=== PATIENT | male | born 1945 | race Caucasian/White ===

== ENCOUNTER → 2017-09-23 | Outpatient (CLI) | payer OTHER | LOC: CIMAGING 08:34 | PROVIDERS: ATTEND Family Medicine | DX: R53.83 Other fatigue (principal); R06.02 Shortness of breath; R68.82 Decreased libido; K59.00 Constipation, unspecified; J44.9 Chronic obstructive pulmonary disease, unspecified | CPT/HCPCS: 71020-PO ==

== ENCOUNTER 2017-10-22 08:24 | Emergency (ER) | payer OTHER ==
[2017-10-22 08:39] VITALS: BP 128/74; PULSE 97; RESP 18; TEMP 97.7; O2SAT 95
--- NOTE | 2017-10-22 09:03 | EDPHY ---
H & P HPI/ROS: CC: Rash x 4 days HPI: This 72 y/o male presents to the ED with c/o a painful, pruritic rash over his left flank that started almost four days ago. It has had "blisters" over the red base. He has never had a shingles vaccine that he knows of. He has had a productive cough for a week or so as well. ROS: Denies fever, chills, headache, vision change or eye lesions, sore throat, chest pain, abdominal pain. He has difficulty urinating on occasion and has to get up multiple times during the night. He wheezes a lot and has a 30 pack/ year history of smoking. He states he is down to 5/day. The remainder of the 10 pt review of systems is normal. Past Medical/Surgical History: PMH: HTN, A-fib/flutter, emphysema, BPH PSH: Lung surgery, ablations FH: noncontributory NKDA Meds: Metoprolol, Pradaxa, [id number] super beta for his prostate Social History: 30 pk/yr history tobacco now down to 5 cig per day; No ETOH, Occasional marijuana Smoking Status: Light smoker Physical Exam: GEN: Alert and Oriented x 3 in moderate discomfort HEENT: NC/AT, PERRLA, EOMI, no injection, discharge or conjunctivitis, no apparent eye lesions, Oropharynx clear NECK: supple, no JVD, no meningeal signs Heart: borderline tachycardia, no murmur, gallops or rubs Lungs: scattered wheeze bilaterally, no rhonchi Abdomen: soft, NT/ND, no R/G/R Extremities: no C/C/E Skin: erythematous rash with vesicles over the left flank ~dermatome T10-11 Neuro: nonfocal exam Constitutional: Initial Vital Signs Temperature (C) 97.7 F 10/22/17 08:35 Heart Rate 97 10/22/17 08:35 Respiratory Rate 18 10/22/17 08:35 Blood Pressure 128/74 H 10/22/17 08:35 O2 Sat (%) 95 10/22/17 08:35 O2 Delivery Mode Room Air Allergies/Adverse Reactions: No Known Allergies Allergy (Unverified 11/18/10 08:41) Home Medications: Medication Instructions Recorded Metoprolol Succinate 11/18/10 Perdaxa 05/27/11 Hydrocodone/APAP 5/325 [[place] 1 - 2 tab PO Q6H PRN #15 tab 10/22/17 5/325 (*)] Valacyclovir HCl [Valtrex] 1,000 mg PO TID #21 tab 10/22/17 predniSONE [Prednisone] 10 mg PO DAILY #41 tablet 10/22/17 Medical Decision Making ED Course/Re-evaluation: The patient was seen and examined, VS reviewed. Rx for Valacyclovir, Prednisone , short course of [place]. Counseled on topical treatments. Should follow up with PCP for recheck as well as to discuss BPH, COPD treatments. 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 Return to the ER if any further problems or concerns as discussed. Differential Diagnosis: DDx considered for but not limited to: shingles, rash, COPD, URI, influenza, BPH Departure - Departure Disposition: Home, Routine, Self-Care Clinical Impression: Herpes zoster Condition: Good Instructions: Benign Prostatic Hypertrophy (ED), Shingles (ED), Emphysema (ED) , Shingles Vaccine (ED) Additional Instructions: You may try topical preparations like calamine lotion, aloe vera (ask your pharmacist for more [id number] recommendations). Once the skin heals you may try gptc-wnf-zexsueg strength lidocaine patches. If the pain persist, there are other options to control what is called "Post-Herpetic Neuralgia." You should see your primary care doctor in 7 - 10 days. Call today to arrange follow up. Tell them you are an ER follow up. You should also discuss your enlarged prostate issues and ask if Pulmonary function tests, inhalers may be an option for your lungs. 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 Return to the ER if you have any further problems or concerns. Referrals: Harvinder Medellin DO [Primary Care Provider] - As per Instructions Prescriptions: Hydrocodone/APAP 5/325 [[place] 5/325 (*)] 1 - 2 tab PO Q6H PRN #15 tab PRN Reason: Pain, Breakthrough predniSONE [Prednisone] 10 mg PO DAILY #41 tablet Valacyclovir HCl [Valtrex] 1,000 mg PO TID #21 tab
== END 2017-10-22 09:10 | disposition home or self-care (01) ==
LOC: CED 08:24
DX: B02.9 Zoster without complications (principal); I10 Essential (primary) hypertension; F17.200 Nicotine dependence, unspecified, uncomplicated

== ENCOUNTER 2017-11-09 09:35 | Emergency (ER) | payer OTHER ==
[2017-11-09] MEDS ORDERED: NS 1,000 ML IV ONE ×2 (10:01→11:21)
[2017-11-09 10:06] VITALS: TEMP 98.4
--- NOTE | 2017-11-09 10:10 | EDPHY ---
H & P Time Seen by Provider: 11/09/17 09:41 HPI/ROS: This patient complains primarily of fatigue and generalized weakness. He completed a course of Valtrex 1000 mg three times daily for 7 days 11 days ago for zoster to his left flank. He reports persistent rash to the left flank- original site of his shingles outbreak seen here for that complaint on October 22. The prominence of initial vesicular lesions have been replaced by erythematous scab lesions and he reports 5/10 persistent burning discomfort to the region. He reports compliance with his Valtrex course. The patient reports over the past week or so feeling more fatigued than usual. He also admits slight lightheadedness while standing over the past few days. ROS: Constitutional: Fatigue as above. No fevers or chills noted. HEENT no URI symptoms recently. No other complaints. Neuro: No headache. Pulmonary: He has a chronic cough productive of clear sputum over the past 6 months. He attributes this to his smoking. Cardiovascular: He has noticed any chest pain other than the chest wall pain from the rash. No lower extremity swelling. No orthopnea. No paroxysmal nocturnal dyspnea. GI: No nausea or vomiting. He still reports good p.o. intake. No diarrhea. : No complaints Endocrine: No complaints Integumentary: As per HPI. No rash outbreak other than the persistent flank rash. Complete review of symptoms is otherwise negative. Social History: He lives with his daughter and grandchildren. No alcohol or drug use. Smoking Status: Light smoker Physical Exam: Vital signs are notable for hypotension with a manual blood pressure of 90 systolic. His last blood pressure here on his prior visit in October was 128 systolic. His respiratory rate is 22. Other vitals are normal General Appearance: Alert, no distress. Eyes: Pupils equal and round no pallor or injection. ENT, Mouth: Mucous membranes moist. Respiratory: Diminished breath sounds bilaterally. No rales or rhonchi appreciated. He does have an intermittent cough. Cardiovascular: Tachycardic, irregularly irregular. No murmur gallop rub. No JVD. No peripheral edema Gastrointestinal: Abdomen is soft and nontender, no masses, bowel sounds normal. Neurological: GCS 15 with no focal deficits. Skin: The patient has a left flank rash that wraps around to the anterior abdomen in a dermatomal distribution comprised of multiple scabs surrounded by a local erythema. No persistent vesicular lesions. No petechia or purpura. No skin rash elsewhere. Musculoskeletal: Neck is supple nontender. Extremities are symmetrical, full range of motion. Psychiatric: Mood and affect are normal DIFFERENTIAL DIAGNOSIS: After history and physical exam differential diagnosis was considered for staph dermatitis, persistent HSV rash, sepsis, pneumonia, coronary syndrome Constitutional: Initial Vital Signs Temperature (C) 36.9 C 11/09/17 09:43 Heart Rate 85 11/09/17 09:43 Respiratory Rate 22 H 11/09/17 09:43 Blood Pressure 90/58 L 11/09/17 09:43 O2 Sat (%) 97 11/09/17 09:43 O2 Delivery Mode Nasal Cannula O2 (L/minute) 2 Allergies/Adverse Reactions: No Known Allergies Allergy (Verified 11/09/17 09:41) Home Medications: Medication Instructions Recorded Metoprolol Succinate 11/18/10 Perdaxa 05/27/11 MDM/Departure - MDM Diagnostics: 12 lead EKG performed shortly after arrival indication generalized weakness rule out coronary syndrome Performed at 10:20 a.m. reveals atrial fibrillation at a rate of 122 Intervals: QRS of 74, QTC of 462 [place]: QRS of 62, T of [address] depression anterolaterally but this appears similar to a prior EKG dated 05/28/2011 by my interpretation. Overall assessment rapid AFib Imaging Results: Imaging Impressions Chest X-Ray 11/09/17 10:17 Impression: No pneumonia. COPD/emphysema. Medications Given: Discontinued Medications Cefazolin Sodium (Ancef) 1.5 gm IVP EDNOW ONE PRN Reason: Protocol Stop: 11/09/17 10:52 Last Admin: 11/09/17 11:00 Dose: 1.5 gm Sodium Chloride (Ns) 1,000 mls @ 0 mls/hr IV ONCE ONE; Wide Open PRN Reason: Protocol Stop: 11/09/17 10:02 Last Admin: 11/09/17 10:34 Dose: 1,000 mls Cefazolin Sodium 1.5 gm/ (Sodium Chloride) 100 mls @ 200 mls/hr IV EDNOW ONE PRN Reason: Protocol Stop: 11/09/17 11:14 Last Admin: 11/09/17 11:35 Dose: Not Given Sodium Chloride (Ns) 1,000 mls @ 0 mls/hr IV ONCE ONE PRN Reason: Wide Open Stop: 11/09/17 11:22 Last Admin: 11/09/17 11:25 Dose: 1,000 mls Valacyclovir HCl (Valtrex) 1,000 mg PO EDNOW ONE Stop: 11/09/17 11:03 Last Admin: 11/09/17 11:25 Dose: 1,000 mg ED Course/Re-evaluation: EKG is performed IV normal saline bolus, blood cultures and lab sent Obtained swab culture of the skin lesions as well as a chest V/VZV swab for PCR Review of initial labs reveals leukocytosis with a white count of 11 half with a left shift. His venous blood gas is revealing a positive lactate of 3.3 Chemistries are within normal limits otherwise. Blood cultures x2 are obtained and pending. I spoke with Isaac Floyd, infectious disease specialist to coordinate plan which will be Ancef antibiotic. 1.5 g of Ancef administered IV. Valtrex 1000 mg p.o. to cover potential lingering zoster I explained the patient his infection in the need for admission. He requests [facility] [place] for his admission due to proximity to his home. Spoke with the connect line for [facility] approximately 11:10 a.m.. They have a bed available and hospitalist will call back I spoke with Dr. Floyd, Hospitalist at [facility] who accepts this patient for admission This patient improved with treatment a systolic pressure of 110. He is able stand up without orthostatics symptoms after his 1st L of IV fluid. He refuses EMS transport to [facility] [place] against medical advice. He explains that he can't afford the ambulance and his sister will drive him to the hospital. He signed AMA form in understands the risk of syncope, cardiac arrest and . Total bedside critical care time: 20 min Discussion: Patient with evidence of bacterial super infection of recent zoster -likely a staph infection with patient qualifies for severe sepsis by numbers with the Respiratory rate greater than 20, pulse greater than 90, severe septic by presence of low blood pressure and positive lactate. Skin source for infection. His chest x-ray rules out pneumonia. I think that is chronic cough attributed to COPD. He is responding well to initial treatment with systolic improved to 110 at 11:20 a.m. - Depart Disposition: Acute Care Hospital Not [facility] Clinical Impression: Severe sepsis Cellulitis Qualifiers: Site of cellulitis: trunk Site of cellulitis of trunk: back Qualified Code(s): L03.312 - Cellulitis of back [any part except buttock] Condition: Serious Referrals: Harvinder Medellin DO [Primary Care Provider] - As per Instructions
--- NOTE | 2017-11-09 10:22 | CPEKG ---
Heart Rate: 122 RR Interval: 492 QRSD Interval: 74 QT Interval: 324 QTC Interval: 462 QRS [place]: 62 T Wave [place]: 61 EKG Severity - ABNORMAL ECG - EKG Impression: ATRIAL FIBRILLATION, V-RATE 97-165 EKG Impression: BORDERLINE T ABNORMALITIES, LATERAL LEADS Electronically Signed By: Nathan Mills 09-Nov-2017 11:02:33
[2017-11-09 10:29] LABS: PLATELET COUNT 236 10^3/uL (150-400)
[2017-11-09] MEDS ORDERED: CEFAZOLIN IV ONE (10:45)
[2017-11-09] MEDS ORDERED: NS IV ONE (10:45)
[2017-11-09] MEDS ORDERED: ceFAZolin 1 GM VIAL ONE (10:50)
[2017-11-09] MEDS ORDERED: ceFAZolin 1 GM VIAL IVP ONE (10:51)
[2017-11-09] MEDS ORDERED: valACYclovir 500 MG TAB PO ONE (11:02)
[2017-11-09 11:39] VITALS: BP 108/73; PULSE 102; RESP 25; O2SAT 97
== END 2017-11-09 12:25 | disposition short-term general hospital (02) ==
LOC: CED 09:35
PROC: 3E0337Z Introduction of Electrolytic and Water Balance Substance into Peripheral Vein, Percutaneous Approach (ICD-10-PCS; principal; 2017-11-09)
DX: A41.9 Sepsis, unspecified organism (principal); R65.20 Severe sepsis without septic shock; L03.312 Cellulitis of back [any part except buttock and flank]; F17.200 Nicotine dependence, unspecified, uncomplicated; E86.9 Volume depletion, unspecified
CPT/HCPCS: 71046; 93005; 96361; 96374; 99285; J0690; 80048-PO; 83605-PO; 84484-PO; 85025-PO; 87529-90

== ENCOUNTER → 2017-11-30 | Outpatient (CLI) | payer OTHER | LOC: CIMAGING 13:57 | PROVIDERS: ATTEND Family Medicine | DX: K59.00 Constipation, unspecified (principal); E03.9 Hypothyroidism, unspecified | CPT/HCPCS: 74019-PO ==

== ENCOUNTER 2017-12-25 09:25 | Inpatient (IN) | payer OTHER ==
[2017-12-25] MEDS ORDERED: ONDANSETRON 4 MG/2 ML VIAL IVP ONE (09:43)
[2017-12-25] MEDS ORDERED: NS 500 ML IV ONE ×3 (09:43→12:10)
--- NOTE | 2017-12-25 09:49 | EDPHY ---
H & P Time Seen by Provider: 12/25/17 09:33 HPI/ROS: HPI Abdominal pain. 72-year-old male by private vehicle. This patient reports that he has had worsening left-sided and mid abdominal pain over the last 7-10 days. He reports he has been constipated. Last bowel movement was 4 days ago. He reports this was pellets. He has not had any associated nausea or vomiting. Last meal was last night and this included chicken soup and pasta. Denies any diarrhea. No bloody or melenic stool. ROS: Constitutional: No fever, no chills. No weakness. Eyes: No discharge. No changes in vision. ENT: No sore throat. No nasal congestion or rhinorrhea. Respiratory: No cough. No shortness of breath. Cardiac: No chest pain, no palpitations. Gastrointestinal: As above. Genitourinary: No hematuria. No dysuria or increased frequency with urination. Musculoskeletal: No back pain. No neck pain. No myalgias or arthralgias. Skin: No rashes. Neurological: No headache. No focal weakness or altered sensation. 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 Social history: Smokes about a half a pack cigarettes a day. No alcohol. Currently lives with his grandson. Physical Exam: General Appearance: Alert, he appears uncomfortable and anxious. This patient is responding to questions appropriately and in full sentences. This patient appears well-hydrated and well-nourished. Eyes: Pupils equal and round no pallor or injection. No lid edema, erythema or injection. Respiratory: There are no retractions, lungs are clear to auscultation with good air movement bilaterally. Cardiovascular: Irregular rate and rhythm. No murmur. Gastrointestinal: Abdomen is soft with moderate to severe tenderness on palpation involving the left lower quadrant, left mid abdomen, mid upper abdomen and periumbilical area, no masses, bowel sounds are present. No focal tenderness at McBurney's point. No Mason sign. Neurological: Motor sensory function is grossly intact. Cranial nerves are normal. Gait is baseline. Skin: Warm and dry, no rashes. Musculoskeletal: Neck is supple and nontender. Extremities are symmetrical. All joints range without pain or impingement. Psychiatric: No agitation. No depression. Database: EKG: Imaging: CT scan of abdomen and pelvis with IV contrast: Mild pancreatitis with associated gastric, duodenal and jejunal wall thickening. A 1.9 cm gallstone is noted in the gallbladder but the ductal system appears unremarkable. Bladder wall thickening is noted and concerning for cystitis. The appendix is well visualized and is normal. He does not have significant constipation. Results were discussed with staff radiologist Dr. Jamshid Pruitt. Procedures: Emergency department course: IV was placed. He was placed on a monitor. Vital signs reviewed. He will be started on IV normal saline with 500 cc to be given over the next hour. He does not have any contraindications to NSAIDs. He has a normal recent creatinine. We will consider Toradol for pain medication. 12:05 p.m., patient re-evaluated. We are currently trying to get urine on him. Concern for possible cystitis based on CT findings above. Otherwise he remains afebrile. Repeat abdominal exam he is soft has vague mid upper abdominal tenderness on palpation. Results of his blood work and CT scan discussed. Discussed admission for further evaluation and management by our hospitalist service. He consents. Hospitalist paged. 12:10 p.m., spoke with on-call hospitalist Dr. Cavazos. Case discussed in detail with him. Dr. Cavazos accepts this patient for admission. We will hold antibiotics at this time until urine can be obtained. Dr. Cavazos will follow up on this. Appropriate transfer paperwork was filled out by myself. He will be transferred by private vehicle with his sister who will be driving. His remaining emergency department course under my care has been uneventful. Differential Diagnosis: The differential diagnosis on this patient includes but is not limited to pancreatitis, gastritis, enteritis, mesenteric ischemia constipation, bowel obstruction, volvulus, appendicitis. This represents a partial list of diagnoses considered. These considerations are based on history, physical exam , past history, reassessment and diagnostic testing. Smoking Status: Heavy smoker Constitutional: Initial Vital Signs Temperature (C) 36.5 C 12/25/17 09:33 Heart Rate 90 12/25/17 09:33 Respiratory Rate 20 12/25/17 09:33 Blood Pressure 101/60 12/25/17 09:33 O2 Sat (%) 99 12/25/17 09:33 O2 Delivery Mode Room Air Allergies/Adverse Reactions: No Known Allergies Allergy (Verified 12/25/17 09:37) Home Medications: Medication Instructions Recorded Metoprolol Succinate 11/18/10 Pradaxa 12/25/17 Some Kind Of Otc Prostate Med 12/25/17 Medical Decision Making - Diagnostics Imaging Results: Imaging Impressions Abdomen CT 12/25/17 09:44 Impression: 1. Features consistent with a mild pancreatitis. 2. There is no evidence of significant constipation, or evidence of a mechanical large bowel obstruction. There are some features suggestive of a potential mild gastroenteritis versus a regional ileus. 3. Cholelithiasis without cholecystitis or bile duct dilatation. If there is further clinical concern, sonography could be considered. 4. Interval development of small amount of fluid in the inferior pericardial sac. 5. 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 6. 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 7. Abnormal urinary bladder wall thickening with enhancement and trabeculation with mild stable prostatomegaly. Correlation with urinalysis is suggested, and as clinically directed, consultation with urology may be of benefit. 8. Advanced degenerative disk disease at L4-L5. Findings were discussed with Neo Martinez MD at 11:26, on 12/25/2017. - Data Points Laboratory Results: Laboratory Results 12/25/17 09:55 12/25/17 09:55 12/25/17 12/25/17 12/25/17 12:07 09:55 09:55 WBC RBC Hgb Hct MCV MCH MCHC RDW Plt Count MPV Neut % (Auto) Lymph % (Auto) [place] % (Auto) Eos % (Auto) Baso % (Auto) Nucleat RBC Rel Count Absolute Neuts (auto) Absolute Lymphs (auto) Absolute Monos (auto) Absolute Eos (auto) Absolute Basos (auto) Absolute Nucleated RBC Immature Gran % Immature Gran # PT 14.7 SEC SEC (12.0-15.0) INR 1.16 (0.83-1.16) APTT 39.9 SEC H SEC (23.0-38.0) VBG Lactic Acid 1.4 mmol/L D mmol/L (0.7-2.1) Sodium 137 mEq/L mEq/L (135-145) Potassium 4.4 mEq/L mEq/L (3.5-5.2) Chloride 104 mEq/L mEq/L (97-110) Carbon Dioxide 24 mEq/l mEq/l (22-31) Anion Gap 9 mEq/L mEq/L (8-16) BUN 13 mg/dL mg/dL (7-23) Creatinine 1.1 mg/dL mg/dL (0.7-1.3) Estimated GFR > 60 Glucose 99 mg/dL mg/dL (70-100) Calcium 8.7 mg/dL mg/dL (8.5-10.4) Total Bilirubin 1.5 mg/dL H mg/dL (0.1-1.4) Conjugated Bilirubin 0.4 mg/dL mg/dL (0.0-0.5) Unconjugated Bilirubin 1.1 mg/dL mg/dL (0.0-1.1) AST 32 IU/L IU/L (17-59) ALT 39 IU/L IU/L (21-72) Alkaline Phosphatase 167 IU/L H IU/L (38-126) Total Protein 7.1 g/dL g/dL (6.3-8.2) Albumin 3.3 g/dL L g/dL (3.5-5.0) Lipase 1179 IU/L H IU/L (23-300) 12/25/17 12/25/17 09:55 09:55 WBC 11.81 10^3/uL H 10^3/uL (3.80-9.50) RBC 4.24 10^6/uL L 10^6/uL (4.40-6.38) Hgb 13.9 g/dL g/dL (13.7-17.5) Hct 40.0 % % (40.0-51.0) MCV 94.3 fL fL (81.5-99.8) MCH 32.8 pg pg (27.9-34.1) MCHC 34.8 g/dL g/dL (32.4-36.7) RDW 15.9 % H % (11.5-15.2) Plt Count 436 10^3/uL H 10^3/uL (150-400) MPV 9.8 fL fL (8.7-11.7) Neut % (Auto) 70.8 % % (39.3-74.2) Lymph % (Auto) 17.8 % % (15.0-45.0) [place] % (Auto) 8.6 % % (4.5-13.0) Eos % (Auto) 1.9 % % (0.6-7.6) Baso % (Auto) 0.5 % % (0.3-1.7) Nucleat RBC Rel Count 0.0 % % (0.0-0.2) Absolute Neuts (auto) 8.35 10^3/uL H 10^3/uL (1.70-6.50) Absolute Lymphs (auto) 2.10 10^3/uL 10^3/uL (1.00-3.00) Absolute Monos (auto) 1.02 10^3/uL H 10^3/uL (0.30-0.80) Absolute Eos (auto) 0.23 10^3/uL 10^3/uL (0.03-0.40) Absolute Basos (auto) 0.06 10^3/uL 10^3/uL (0.02-0.10) Absolute Nucleated RBC 0.00 10^3/uL 10^3/uL (0-0.01) Immature Gran % 0.4 % % (0.0-1.1) Immature Gran # 0.05 10^3/uL 10^3/uL (0.00-0.10) PT INR APTT VBG Lactic Acid 2.3 mmol/L H mmol/L (0.7-2.1) Sodium Potassium Chloride Carbon Dioxide Anion Gap BUN Creatinine Estimated GFR Glucose Calcium Total Bilirubin Conjugated Bilirubin Unconjugated Bilirubin AST ALT Alkaline Phosphatase Total Protein Albumin Lipase Medications Given: Discontinued Medications Sodium Chloride (Ns) 500 mls @ 0 mls/hr IV EDNOW ONE; Wide Open PRN Reason: Protocol Stop: 12/25/17 09:44 Last Admin: 12/25/17 10:15 Dose: Not Given Sodium Chloride (Ns) 500 mls @ 0 mls/hr IV EDNOW ONE; Wide Open PRN Reason: Protocol Stop: 12/25/17 10:08 Last Admin: 12/25/17 10:00 Dose: 500 mls Sodium Chloride (Ns) 500 mls @ 0 mls/hr IV EDNOW ONE; Wide Open PRN Reason: Protocol Stop: 12/25/17 12:11 Last Admin: 12/25/17 11:30 Dose: 500 mls Ondansetron HCl (Zofran) 4 mg IVP EDNOW ONE Stop: 12/25/17 09:44 Last Admin: 12/25/17 10:08 Dose: 4 mg Departure - Departure Disposition: [facility] Clinical Impression: Abdominal pain, Pancreatitis, Enteritis
[2017-12-25 10:03] LABS: PLATELET COUNT 436 10^3/uL (150-400)
[2017-12-25] MEDS ORDERED: IOPAMIDOL (ISOVUE-300) 100 ML BTL ONE (10:03)
[2017-12-25 10:12] LABS: INR 1.16 (0.83-1.16); PROTIME(PATIENT) 14.7 SEC (12.0-15.0)
[2017-12-25] MEDS ORDERED: ONDANSETRON 4 MG/2 ML VIAL IVP PRN (14:21)
[2017-12-25] MEDS ORDERED: PROMETHAZINE HCL 25 MG/ML INJ IVP PRN (14:21)
[2017-12-25] MEDS ORDERED: HYDROmorphONE/DILAUDID 1 MG/ML INJ IVP PRN (14:21)
[2017-12-25] MEDS ORDERED: NICOTINE POLACRILEX 2 MG GUM B PRN (15:25)
--- NOTE | 2017-12-25 15:27 | PDGENHP ---
History and Physical - Chief Complaint abdominal pain - History of Present Illness 72 yo M with PMH of A fib on chronic AC as well as recent hospitalization at OSH for sepsis with urinary source presenting today with mid epigastric and left sided abdominal pain. Pain has been severe, worse with eating. He has never had similar sxs in the past. He does not drink more than 1 or 2 drinks per month and has not had a an alcoholic beverage for 2 months. He has had chronic urinary complaints that he has not really seen anyone for. He notes that he previously was taking on OTC prostate medication that did not really help so he stopped using it. He has noticed that in the last several days his urine changed from yellow to cloudy colored. He has no pain with urination. He also has complaints of chronic left sided chest pain that has been present since he suffered rib fractures and ultimately underwent a VATS/decortication for hemopneumothorax. He notes the pain has not changed, but has not improved since the surgery in 11/2015. He remains on AC for A flutter and notes he refused another attempted ablation but does not have significant symptoms related to this. He also complains of chronic neuropathy present in his bilateral hands and feet, states that above the wrists and ankles bilaterally he has numbness. He does not know why this is but thinks it is due to his nerves or related to his chronic back issues. History Information - Allergies/Home Medication List Allergies/Adverse Reactions: No Known Allergies Allergy (Verified 12/25/17 09:37) Home Medications: Metoprolol Tartrate [Lopressor 25 mg (*)] 25 mg PO BID 11/18/10 [Last Taken 2 Days Ago ~12/23/17] Acetaminophen [Tylenol ES 500 mg (*)] 500 mg PO Q4D 12/25/17 [Last Taken Unknown ] Dabigatran Etexilate Mesyl [Pradaxa 150 MG (*)] 150 mg PO BID 12/25/17 [Last Taken 2 Days Ago ~12/23/17] Herbals/Supplements -Info Only 1 ea PO DAILY 12/25/17 [Last Taken Unknown] I have personally reviewed and updated: family history, medical history, social history, surgical history - Past Medical History atrial fibrillation (flutter), degenerative disc disease, hypertension Additional medical history: renal cortical infarct. MICHAEL thrombus--does not appear to be followed up. traumatic hemopneumothorix. Left rib fractures 7- 10. gout. shingles. BPH. recent urinary sepsis - Surgical History Additional surgical history: VATS decortication. ablation x 2. 2 back surgeries - Family History Additional family history: brother with heart disease - Social History Smoking Status: Heavy smoker Tobacco Use: Less than 1 pack/day Alcohol Use: Rarely Drug Use: None Additional social history: Review of Systems Review of Systems: ROS: 10pt was reviewed & negative except for what was stated in HPI & below Physical Exam Physical Exam: Temp Pulse Resp BP Pulse Ox 36.8 C 99 18 107/78 98 12/25/17 14:23 12/25/17 14:23 12/25/17 14:23 12/25/17 14:23 12/25/17 14:23 Constitutional: no apparent distress, appears nourished Eyes: PERRL Ears, Nose, Mouth, Throat: moist mucous membranes, hearing normal Cardiovascular: no murmur, rub, or gallop, irregularly irregular, No edema Respiratory: no respiratory distress, no rales or rhonchi Gastrointestinal: normoactive bowel sounds, tenderness, No guarding, No rebound , No distension Genitourinary: no bladder tenderness Skin: warm, normal color Musculoskeletal: full muscle strength Neurologic: AAOx3 Psychiatric: interacting appropriately, not anxious, not encephalopathic Lab Data & Imaging Review 12/25/17 09:55 12/25/17 09:55 WBC 11.81 10^3/uL (3.80-9.50) H 12/25/17 09:55 RBC 4.24 10^6/uL (4.40-6.38) L 12/25/17 09:55 Hgb 13.9 g/dL (13.7-17.5) 12/25/17 09:55 Hct 40.0 % (40.0-51.0) 12/25/17 09:55 MCV 94.3 fL (81.5-99.8) 12/25/17 09:55 MCH 32.8 pg (27.9-34.1) 12/25/17 09:55 MCHC 34.8 g/dL (32.4-36.7) 12/25/17 09:55 RDW 15.9 % (11.5-15.2) H 12/25/17 09:55 Plt Count 436 10^3/uL (150-400) H 12/25/17 09:55 MPV 9.8 fL (8.7-11.7) 12/25/17 09:55 Neut % (Auto) 70.8 % (39.3-74.2) 12/25/17 09:55 Lymph % (Auto) 17.8 % (15.0-45.0) 12/25/17 09:55 [place] % (Auto) 8.6 % (4.5-13.0) 12/25/17 09:55 Eos % (Auto) 1.9 % (0.6-7.6) 12/25/17 09:55 Baso % (Auto) 0.5 % (0.3-1.7) 12/25/17 09:55 Nucleat RBC Rel Count 0.0 % (0.0-0.2) 12/25/17 09:55 Absolute Neuts (auto) 8.35 10^3/uL (1.70-6.50) H 12/25/17 09:55 Absolute Lymphs (auto) 2.10 10^3/uL (1.00-3.00) 12/25/17 09:55 Absolute Monos (auto) 1.02 10^3/uL (0.30-0.80) H 12/25/17 09:55 Absolute Eos (auto) 0.23 10^3/uL (0.03-0.40) 12/25/17 09:55 Absolute Basos (auto) 0.06 10^3/uL (0.02-0.10) 12/25/17 09:55 Absolute Nucleated RBC 0.00 10^3/uL (0-0.01) 12/25/17 09:55 Immature Gran % 0.4 % (0.0-1.1) 12/25/17 09:55 Immature Gran # 0.05 10^3/uL (0.00-0.10) 12/25/17 09:55 PT 14.7 SEC (12.0-15.0) 12/25/17 09:55 INR 1.16 (0.83-1.16) 12/25/17 09:55 APTT 39.9 SEC (23.0-38.0) H 12/25/17 09:55 VBG Lactic Acid 1.4 mmol/L (0.7-2.1) D 12/25/17 12:07 Sodium 137 mEq/L (135-145) 12/25/17 09:55 Potassium 4.4 mEq/L (3.5-5.2) 12/25/17 09:55 Chloride 104 mEq/L (97-110) 12/25/17 09:55 Carbon Dioxide 24 mEq/l (22-31) 12/25/17 09:55 Anion Gap 9 mEq/L (8-16) 12/25/17 09:55 BUN 13 mg/dL (7-23) 12/25/17 09:55 Creatinine 1.1 mg/dL (0.7-1.3) 12/25/17 09:55 Estimated GFR > 60 12/25/17 09:55 Glucose 99 mg/dL (70-100) 12/25/17 09:55 Calcium 8.7 mg/dL (8.5-10.4) 12/25/17 09:55 Total Bilirubin 1.5 mg/dL (0.1-1.4) H 12/25/17 09:55 Conjugated Bilirubin 0.4 mg/dL (0.0-0.5) 12/25/17 09:55 Unconjugated Bilirubin 1.1 mg/dL (0.0-1.1) 12/25/17 09:55 AST 32 IU/L (17-59) 12/25/17 09:55 ALT 39 IU/L (21-72) 12/25/17 09:55 Alkaline Phosphatase 167 IU/L (38-126) H 12/25/17 09:55 Total Protein 7.1 g/dL (6.3-8.2) 12/25/17 09:55 Albumin 3.3 g/dL (3.5-5.0) L 12/25/17 09:55 Lipase 1179 IU/L (23-300) H 12/25/17 09:55 Urine Color YELLOW 12/25/17 13:25 Urine Appearance HAZY 12/25/17 13:25 Urine pH 6.0 (5.0-7.5) 12/25/17 13:25 Ur Specific [place] <= 1.005 (1.002-1.030) 12/25/17 13:25 Urine Protein 1+ (NEGATIVE) H 12/25/17 13:25 Urine Ketones NEGATIVE (NEGATIVE) 12/25/17 13:25 Urine Blood 1+ (NEGATIVE) H 12/25/17 13:25 Urine Nitrate POSITIVE (NEGATIVE) H 12/25/17 13:25 Urine Bilirubin NEGATIVE (NEGATIVE) 12/25/17 13:25 Urine Urobilinogen 0.2 EU (0.2-1.0) 12/25/17 13:25 Ur Leukocyte Esterase 2+ (NEGATIVE) H 12/25/17 13:25 Urine RBC 5-10 /hpf (0-3) H 12/25/17 13:25 Urine WBC 50-182 /hpf (0-3) H 12/25/17 13:25 Ur Epithelial Cells NONE SEEN /lpf (NONE-1+) 12/25/17 13:25 Urine Bacteria 3+ /hpf (NONE SEEN) H 12/25/17 13:25 Urine Glucose NEGATIVE (NEGATIVE) 12/25/17 13:25 Visualized and Interpreted imaging results: Yes Interpretation: CT abd: mild pancreatitis, ? gastroenteritis or localized ileus , cholelithiasis w/o biliary ductal dilation, stable pancreatic head cyst, blader wall thickening and enhancement Visualized and Interpreted EKG results: Yes EKG additional interpertation: from Nov: a flutter Assessment & Plan Assessment: 72 yo M pw mid epigastric and left sided abdominal pain as well as changes in urination # acute pancreatitis: suspect this is at least partially responsible for his sxs , lipase > 1000 and e/o pancreatitis on imaging. NPO, IVF, pain medications as needed. Will get US to further eval cholelithiasis noted on CT. Does not have hx of etoh use, no recent changes in medications. # UTI: with recent hospitalization for sepsis associated with same, starting on CTX pending culture data. 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 Will get echo in am for follow up. # atrial flutter: will continue metoprolol, will transition from pradaxa to LMWH while in house for the low possibility that patient requires surgical intervention, ecg ordered # tobacco use: patch and gum ordered, counseled on cessation # DVT ppx: lmwh, resume pradaxa on dc # dispo: observation status for now Patient new to my care. Old records reviewed and summarized as above. Care plan reviewed with ER doctor as above.
[2017-12-25] MEDS: NS 1,000 ML IV SCH ×2 (15:54→23:07)
[2017-12-25] MEDS ORDERED: HYDROmorphone HCL/NS 0.5 MG/ML SYR IVP PRN (16:00)
--- NOTE | 2017-12-25 17:01 | CPEKG ---
Heart Rate: 124 RR Interval: 484 QRSD Interval: 76 QT Interval: 352 QTC Interval: 506 QRS [place]: 72 T Wave [place]: 65 EKG Severity - ABNORMAL ECG - EKG Impression: ATRIAL FIBRILLATION, V-RATE 101-163 EKG Impression: VENTRICULAR PREMATURE COMPLEX versus aberrant conduction(Ashmann's phenomenon) EKG Impression: PROLONGED QT INTERVAL EKG Impression: COMPARED TO EKG DATED 12/25/2017 THERE ARE NO SIGNIFICANT CHANGES Electronically Signed By: Ayad Adhikari 29-Dec-2017 16:01:15
[2017-12-25] MEDS: TAMSULOSIN HCL 0.4 MG CAP PO SCH (17:12)
[2017-12-25] MEDS: NICOTINE 14 MG/24 HR PATCH TD SCH (17:12)
[2017-12-25] MEDS ORDERED: DABIGATRAN ETEXILATE MESYL 150 MG CAP PO SCH (21:00)
[2017-12-25] MEDS: METOPROLOL TARTRATE 25 MG TAB PO SCH (21:11)
[2017-12-25] MEDS: ENOXAPARIN 80 MG/0.8 ML SYR SC SCH (21:11)
[2017-12-25] MEDS: ACETAMINOPHEN 325 MG TAB PO PRN (23:07)
[2017-12-26] MEDS: ONDANSETRON DISINTEGRATING 4 MG TAB PO PRN (00:28)
[2017-12-26] MEDS: oxyCODONE IR 5 MG TAB PO PRN ×3 (04:14→16:33)
[2017-12-26] MEDS: NS 1,000 ML IV SCH ×2 (05:11→12:33)
[2017-12-26] MEDS: TAMSULOSIN HCL 0.4 MG CAP PO SCH (08:54)
[2017-12-26] MEDS: METOPROLOL TARTRATE 25 MG TAB PO SCH ×2 (08:54→18:22)
[2017-12-26] MEDS: NICOTINE 14 MG/24 HR PATCH TD SCH (08:57)
[2017-12-26] MEDS: ENOXAPARIN 80 MG/0.8 ML SYR SC SCH ×2 (08:58→20:26)
[2017-12-26] MEDS ORDERED: ENOXAPARIN 40 MG/0.4 ML SYR SC SCH (09:00)
--- NOTE | 2017-12-26 16:48 | ASMTCMCOM ---
CM Note CM Note Notes: 12/26/2017 Case Management Note Met w/pt. BRADY signed. Pt lives along but has strong family support including the following: Grandson Nathan [phone] Son Ousmane [phone] Granddaughter Nydia [phone] and is independent in ADL's. There are not PT or OT evals ordered at this time. Case Management d/c poc: anticipating independent. Case Management available if needs change. Date Signed: 12/26/2017 04:47 PM Electronically Signed By:Bailey Irene RN
--- NOTE | 2017-12-26 18:05 | HOSPPROG ---
Hospitalist Progress Note Assessment/Plan: #Gallstone pancreatitis: stone in neck. Discussed case with Dr. Bear, who will consult -NPO, IVFS, pain control. No e/o cholecystitis #Gram negative UTI: cont IV Ceftriaxone #Permanent atrial fibrillation: BB, holding Pradaxa and on Lovenox here in case of surgery #h/o left appendage thrombus: echo pending, Lovenox #Tobacco abuse: darshan patch #Diet:NPO, IVFs #Disp: warrants inpatient admission for IVFs, IV opioids and possible surgical intervention Subjective: epigastric pain. Mild nausea, no emesis Objective: Vital Signs Temp Pulse Resp BP Pulse Ox 36.8 C 133 H 16 101/62 94 12/26/17 16:05 12/26/17 16:05 12/26/17 16:05 12/26/17 16:05 12/26/17 16:05 Laboratory Results 12/26/17 04:27 12/25/17 12/26/17 12/27/17 05:59 05:59 05:59 Intake Total 1160 1912 Output Total 100 1200 Balance 1060 712 PT 14.7 SEC (12.0-15.0) 12/25/17 09:55 INR 1.16 (0.83-1.16) 12/25/17 09:55 - Physical Exam Constitutional: no apparent distress Eyes: PERRL Ears, Nose, Mouth, Throat: moist mucous membranes Cardiovascular: irregularly irregular Respiratory: no respiratory distress, no rales or rhonchi Gastrointestinal: normoactive bowel sounds, tenderness (epigastric) Genitourinary: no bladder fullness Skin: warm Musculoskeletal: full muscle strength Neurologic: AAOx3 Psychiatric: interacting appropriately ICD10 Worksheet Patient Problems: Problems Problem Status Onset Abdominal pain Acute Enteritis Acute Pancreatitis Acute
[2017-12-26] MEDS: D5W 1/2 NS 1,000 ML IV SCH (18:26)
--- NOTE | 2017-12-26 18:43 | PDMN ---
Medical Necessity Medical necessity: C/M review: est. > 2 MN LOS for eval and TX of acute and persistent gallstone pancreatitis, gran negative urinary tract infection requiring planned General Surgery consult, possible surgical intervention during this admission, 12/26/2017 MRCP, ongoing NPO, IV fluids. IV Ceftriaxone, IV opioids, cardiac monitoring, pulse oximetry, supplemental O2, comorbid permanent atrial fibrillation, history of left appendage thrombus, tobacco abuse per 12/26/2017 Hospitalist progress note.
[2017-12-26] MEDS: ACETAMINOPHEN 325 MG TAB PO PRN (20:33)
--- NOTE | 2017-12-26 21:11 | GCON ---
[f rep st] CONSULTATION DATE OF CONSULTATION: 12/26/2017 REFERRING PHYSICIAN: Tammie Singh MD REASON FOR EVALUATION: Possible gallstone pancreatitis. HISTORY OF PRESENT ILLNESS: 72-year-old male with a significant history for atrial fibrillation, presents to the emergency room with complaints of left- sided abdominal pain starting approximately 48 hours prior to admission on Thursday. He states that the pain radiated to his back. He describes a history of longstanding constipation over the last 2 years. His last colonoscopy was about 6 or 7 years ago. He denies nausea, vomiting. He denies prior similar complaints. He denies history of right upper quadrant pain with meals. He denies a history of significant change in heartburn symptoms, which he has had over the last decade. He denies fevers or chills. He does report that he has had chronic difficulty emptying his bladder. He was admitted to [facility] with urosepsis, and also significantly was diagnosed with shingles approximately 1 month ago. His shingles involved his left flank. Hospital workup disclosed evidence of cholelithiasis without gallbladder wall thickening. His common bile duct was noted to be of normal caliber, and his ultrasound CT imaging showed a massively thickened bladder. He has greater than 100,000 gram-negative non lactose fermenting rods on a clean-catch urine. Because of the above finding, Surgery has been requested for further workup and management for possible gallstone pancreatitis. PAST MEDICAL HISTORY: Chronic atrial fibrillation, history of left atrial thrombus, gout, recent shingles as above, BPH with multiple recurrent urinary tract infections. PAST SURGICAL HISTORY: Left thoracostomy secondary to a post fall traumatic hemothorax, multiple EP ablation x2, L4-5 spinal surgery x2. MEDICATIONS: Lopressor, Pradaxa. ALLERGIES: No known drug allergies. SOCIAL HISTORY: No significant alcohol or tobacco. 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 REVIEW OF SYSTEMS: Notable for chronic fatigue and chronic left chest wall pain post thoracotomy. Otherwise, negative 10 point review. PHYSICAL EXAMINATION: VITAL SIGNS: Temperature 36.8, blood pressure 110/80, pulse 123, respirations 16. GENERAL: The patient is alert, appropriate, comfortable. HEENT: Anicteric. No cervical or supraclavicular lymphadenopathy. HEART: Irregular without murmurs. LUNGS: Clear bilaterally. Chest wall with well-healed thoracoscopy incision. ABDOMEN: Soft , minimal left lower quadrant tenderness without rebound or guarding. No appreciable masses. No right upper quadrant tenderness. No Mason sign. No abdominal hernias. EXTREMITIES: Without edema, 2+ radial and pedal pulses. SKIN: Resolving left lower ribcage shingles rash with healed blistering. NEUROLOGIC: Alert and appropriate. LABS: White count 12, hemoglobin 14, platelets of 440, INR 1.1. Electrolytes within reference range. Admitting alkaline phosphatase 167, AST 32, ALT 39, total bilirubin 1.5 with a conjugated fraction of 0.4. Repeat liver enzymes today with alkaline phosphatase of 152, and a total bilirubin of 1.2, TSH 1.76. Lipase of 1000. IMAGING STUDIES: All directly reviewed on PACS. Right upper quadrant ultrasound with cholelithiasis. No pericholecystic fluid. Common bile duct measuring [address] imaging without evidence of constipation. No evidence of mass lesion. No right upper quadrant free fluid. Stable unchanged pancreatic head cyst measuring 8 mm, unchanged from 2011 study. Markedly thickened bladder with enhancement, mild peripancreatic inflammatory changes. IMPRESSIONS: 1. Pancreatitis. 2. Cholelithiasis. 3. Recent history of shingles infection. 4. Recurrent urinary tract infection with chronic underlying benign prostatic hypertrophy. 5. Stable pancreatic cyst. 6. Atrial fibrillation, on chronic anticoagulation. RECOMMENDATIONS: Etiologies of the patient's pancreatitis may include a CBD stone versus viral etiology given his recent zoster infection. His recurring urinary infections requiring antibiotic treatment may also be contributing factors. He does not describe a history of recurrent biliary colic symptoms. I would pursue an MRCP in the patient's case to exclude evidence of retained common bile duct stone. If no evidence of stone, would plan to follow up in the outpatient setting with further discussion regarding a laparoscopic cholecystectomy at that time. He is hesitant to proceed with surgery unless absolutely necessary given his difficult VATS recovery. Recommend continued UTI management with antibiotic therapy currently in process. The patient will require outpatient evaluation with cystoscopy for his bladder abnormalities. No further workup or management necessary for his stable pancreatic head cyst. These findings and recommendations were discussed in detail with the patient, who is in complete agreement. Final recommendations to follow pending MRCP. /[id number]/MODL MTDD
[2017-12-27] MEDS: oxyCODONE IR 5 MG TAB PO PRN ×4 (04:32→19:32)
[2017-12-27] MEDS: D5W 1/2 NS 1,000 ML IV SCH ×3 (04:52→19:32)
[2017-12-27] MEDS ORDERED: POLYETHYLENE GLYCOL 3350 17 GM PKT PO PRN (05:00)
[2017-12-27] MEDS ORDERED: LACTULOSE 20 GM/30 ML UDCUP PO PRN (05:00)
[2017-12-27] MEDS ORDERED: BISACODYL 10 MG SUPP PR PRN (05:00)
[2017-12-27] MEDS ORDERED: MAGNESIUM HYDROXIDE 30 ML UDCUP PO PRN (05:00)
--- NOTE | 2017-12-27 06:53 | SOAPPROG ---
SOAP Progress Note Assessment/Plan: Assessment:no overnight events. urinating better. LLQ pain better. no RUQ pain. no N/V. afebrile. abd soft, min LLQ tenderness. LFT normal. Lipase 400. Acute pancreatitis, BPH/UTI/abnormal bladder on CT/chronic lethargy, afib on chronic anticoagulation, chronic constipation. For MRCP today - assuming normal, okay to advance diet with outpatient follow-up to discuss possible future lap choly options. If evidence of CBD stone, will need GI/ERCP assessment. Needs outpatient f/u prior - he is improved with Flomax and ABX. Lifetime fiber supplementation recommended. Plan: 12/27/17 06:49 Objective: Vital Signs Temp Pulse Resp BP Pulse Ox 36.6 C 98 20 120/83 H 96 12/27/17 04:00 12/27/17 04:00 12/27/17 04:00 12/27/17 04:00 12/27/17 04:00 12/26/17 12/27/17 12/28/17 05:59 05:59 05:59 Intake Total 200 Output Total 650 Balance -450 PT 14.7 SEC (12.0-15.0) 12/25/17 09:55 INR 1.16 (0.83-1.16) 12/25/17 09:55 ICD10 Worksheet Patient Problems: Problems Problem Status Onset Abdominal pain Acute Enteritis Acute Pancreatitis Acute
--- NOTE | 2017-12-27 09:17 | HOSPPROG ---
Hospitalist Progress Note Assessment/Plan: #Gallstone pancreatitis: no stone on MRCP. Cont supportive care with IVFs, can try clears. Cont opioids #E coli UTI: Day 3 of Rocephin #Permanent atrial fibrillation: BB, holding Pradaxa and on Lovenox here in case of surgery #h/o left appendage thrombus: last echo 2010. This can be repeated as outpatient #Tobacco abuse: darshan patch #Diet:NPO, IVFs #Disp: warrants inpatient admission for IVFs and pain management Subjective: 01/12 epigastric pain Objective: Vital Signs Temp Pulse Resp BP Pulse Ox 36.8 C 90 16 107/68 99 12/27/17 08:00 12/27/17 08:00 12/27/17 08:00 12/27/17 08:00 12/27/17 08:00 12/26/17 12/27/17 12/28/17 05:59 05:59 05:59 Intake Total 1751 Output Total 650 Balance 1101 PT 14.7 SEC (12.0-15.0) 12/25/17 09:55 INR 1.16 (0.83-1.16) 12/25/17 09:55 - Physical Exam Constitutional: no apparent distress Eyes: PERRL Ears, Nose, Mouth, Throat: moist mucous membranes Cardiovascular: irregularly irregular Respiratory: no respiratory distress Gastrointestinal: normoactive bowel sounds, tenderness (mild epigastric pain) Genitourinary: no bladder fullness Skin: warm Musculoskeletal: full muscle strength Neurologic: AAOx3, CN II-XII Intact Psychiatric: interacting appropriately ICD10 Worksheet Patient Problems: Problems Problem Status Onset Abdominal pain Acute Enteritis Acute Pancreatitis Acute
[2017-12-27] MEDS: SENNOSIDES/DOCUSATE SODIUM TAB PO SCH ×2 (10:19→19:40)
[2017-12-27] MEDS: TAMSULOSIN HCL 0.4 MG CAP PO SCH (10:19)
[2017-12-27] MEDS: METOPROLOL TARTRATE 25 MG TAB PO SCH ×2 (10:19→17:29)
[2017-12-27] MEDS: ENOXAPARIN 80 MG/0.8 ML SYR SC SCH ×2 (10:19→20:35)
[2017-12-27] MEDS: NICOTINE 14 MG/24 HR PATCH TD SCH (10:25)
[2017-12-27] MEDS ORDERED: METOPROLOL TARTRATE 25 MG TAB PO ONE (17:47)
[2017-12-28] MEDS: oxyCODONE IR 5 MG TAB PO PRN ×4 (01:13→21:05)
[2017-12-28] MEDS: D5W 1/2 NS 1,000 ML IV SCH ×3 (03:28→18:13)
--- NOTE | 2017-12-28 08:22 | SOAPPROG ---
SOAP Progress Note Assessment/Plan: Assessment:abd pain slowly improving - still occasional cramps. no voiding concerns. no RUQ pain. MRCP reviewed - no CBD stone. AVSS. comfortable. abd soft, min LLQ tenderness. recurrent ecoli urosepsis, chronic BPH, shingles, gallstones - clinically improving. based on his history and minimal lipase elevation on admission, i suspect his pancreatitis is more likely medical rather than stone related. cont supportive care measures at this time. bentyl trial for LLQ pain. lifetime fiber supplementation for his chronic constipation concerns once tolerating po again. will discuss future outpt lap choly consideration after future outpt assessment completed. no overnight events. urinating better. LLQ pain better. no RUQ pain. no N/ V. afebrile. abd soft, min LLQ tenderness. LFT normal. Lipase 400. Acute pancreatitis, BPH/UTI/abnormal bladder on CT/chronic lethargy, afib on chronic anticoagulation, chronic constipation. For MRCP today - assuming normal, okay to advance diet with outpatient follow-up to discuss possible future lap choly options. If evidence of CBD stone, will need GI/ERCP assessment. Needs outpatient f/u prior - he is improved with Flomax and ABX. Lifetime fiber supplementation recommended. Plan: 12/27/17 06:49 12/28/17 08:17 Objective: Vital Signs Temp Pulse Resp BP Pulse Ox 36.7 C 107 H 20 118/78 92 12/28/17 04:00 12/28/17 04:00 12/28/17 04:00 12/28/17 04:00 12/28/17 04:00 12/27/17 12/28/17 12/29/17 05:59 05:59 05:59 Intake Total 1751 3660 Output Total 650 2250 Balance 1101 1410 PT 14.7 SEC (12.0-15.0) 12/25/17 09:55 INR 1.16 (0.83-1.16) 12/25/17 09:55 ICD10 Worksheet Patient Problems: Problems Problem Status Onset Abdominal pain Acute Enteritis Acute Pancreatitis Acute
[2017-12-28] MEDS: TAMSULOSIN HCL 0.4 MG CAP PO SCH (08:33)
[2017-12-28] MEDS: SENNOSIDES/DOCUSATE SODIUM TAB PO SCH ×2 (08:34→21:05)
[2017-12-28] MEDS: ENOXAPARIN 80 MG/0.8 ML SYR SC SCH ×2 (08:35→20:58)
[2017-12-28] MEDS: NICOTINE 14 MG/24 HR PATCH TD SCH (08:36)
[2017-12-28] MEDS: DICYCLOMINE 10 MG CAP PO PRN (08:50)
[2017-12-28] MEDS ORDERED: METOPROLOL TARTRATE 25 MG TAB PO SCH ×2 (09:00→15:32)
[2017-12-28] MEDS: ONDANSETRON DISINTEGRATING 4 MG TAB PO PRN (09:06)
--- NOTE | 2017-12-28 12:12 | HOSPPROG ---
Hospitalist Progress Note Assessment/Plan: #Gallstone pancreatitis: no CBD stone on MRCP. Can consider lap choley outpatient if recurrent pain -N/V with clears. Change back to [employer], cont IVFs. Cont opioids #E coli UTI: Day 4/7 of Rocephin #Permanent atrial fibrillation: BB, holding Pradaxa with NPO. On Lovenox here #h/o left appendage thrombus: last echo 2010. This can be repeated as outpatient #Tobacco abuse: darshan patch #Recent shingles infection: no pain currently #BPH: Flomax #Diet:NPO, IVFs #Disp: warrants inpatient admission for IVFs and pain management Subjective: N/V and increased pain last night after clears Objective: Vital Signs Temp Pulse Resp BP Pulse Ox 36.6 C 126 H 20 115/86 H 94 12/28/17 08:00 12/28/17 08:32 12/28/17 08:00 12/28/17 08:32 12/28/17 08:00 12/27/17 12/28/17 12/29/17 05:59 05:59 05:59 Intake Total 1751 3660 Output Total 650 2250 Balance 1101 1410 PT 14.7 SEC (12.0-15.0) 12/25/17 09:55 INR 1.16 (0.83-1.16) 12/25/17 09:55 - Physical Exam Constitutional: no apparent distress Eyes: PERRL Ears, Nose, Mouth, Throat: moist mucous membranes Cardiovascular: regular rate and rhythym Respiratory: no respiratory distress Gastrointestinal: other (epigastric TTP, no rebound or guarding) Genitourinary: no bladder fullness Skin: warm Musculoskeletal: full muscle strength Neurologic: AAOx3 Psychiatric: interacting appropriately ICD10 Worksheet Patient Problems: Problems Problem Status Onset Abdominal pain Acute Enteritis Acute Pancreatitis Acute
[2017-12-28] MEDS ORDERED: METOPROLOL TARTRATE 25 MG TAB PO PRN (15:30)
[2017-12-28] MEDS: METOPROLOL TARTRATE 50 MG TAB PO SCH (21:05)
[2017-12-29] MEDS: D5W 1/2 NS 1,000 ML IV SCH ×2 (02:52→10:53)
[2017-12-29] MEDS: oxyCODONE IR 5 MG TAB PO PRN (02:52)
[2017-12-29 04:34] VITALS: RESP 18
--- NOTE | 2017-12-29 06:29 | SOAPPROG ---
SOAP Progress Note Assessment/Plan: Assessment:no overnight complaints. LLQ pain nearly resolved. hungry. no nausea. bentyl helped with discomfort yesterday. intermittent chronic tachy/ afib. afebrile. comfortable/resting quietly. abd soft, nontender. improving pancreatitis, UTI, zoster, prob incidental gallstones, chronic afib. ok to restart diet. cont supportive care measures. outpt follow-up. call with questions. abd pain slowly improving - still occasional cramps. no voiding concerns. no RUQ pain. MRCP reviewed - no CBD stone. AVSS. comfortable. abd soft, min LLQ tenderness. recurrent ecoli urosepsis, chronic BPH, shingles, gallstones - clinically improving. based on his history and minimal lipase elevation on admission, i suspect his pancreatitis is more likely medical rather than stone related. cont supportive care measures at this time. bentyl trial for LLQ pain. lifetime fiber supplementation for his chronic constipation concerns once tolerating po again. will discuss future outpt lap choly consideration after future outpt assessment completed. no overnight events. urinating better. LLQ pain better. no RUQ pain. no N/ V. afebrile. abd soft, min LLQ tenderness. LFT normal. Lipase 400. Acute pancreatitis, BPH/UTI/abnormal bladder on CT/chronic lethargy, afib on chronic anticoagulation, chronic constipation. For MRCP today - assuming normal, okay to advance diet with outpatient follow-up to discuss possible future lap choly options. If evidence of CBD stone, will need GI/ERCP assessment. Needs outpatient f/u prior - he is improved with Flomax and ABX. Lifetime fiber supplementation recommended. Plan: 12/27/17 06:49 12/28/17 08:17 12/29/17 06:26 Objective: Vital Signs Temp Pulse Resp BP Pulse Ox 36.5 C 101 H 18 134/82 H 95 12/29/17 04:00 12/29/17 04:00 12/29/17 04:00 12/29/17 04:00 12/29/17 04:00 12/28/17 12/29/17 12/30/17 05:59 05:59 05:59 Intake Total 3660 3538 Output Total 2250 2800 Balance 1410 738 PT 14.7 SEC (12.0-15.0) 12/25/17 09:55 INR 1.16 (0.83-1.16) 12/25/17 09:55 ICD10 Worksheet Patient Problems: Problems Problem Status Onset Abdominal pain Acute Enteritis Acute Pancreatitis Acute
[2017-12-29] MEDS: DICYCLOMINE 10 MG CAP PO PRN (09:48)
[2017-12-29] MEDS: METOPROLOL TARTRATE 50 MG TAB PO SCH (09:48)
[2017-12-29] MEDS: TAMSULOSIN HCL 0.4 MG CAP PO SCH (09:48)
[2017-12-29] MEDS: ENOXAPARIN 80 MG/0.8 ML SYR SC SCH (09:48)
[2017-12-29] MEDS: SENNOSIDES/DOCUSATE SODIUM TAB PO SCH (09:51)
[2017-12-29] MEDS: NICOTINE 14 MG/24 HR PATCH TD SCH (09:51)
--- NOTE | 2017-12-29 13:21 | ASMTLACE ---
MICHELLE Length of stay for Answers: 3 days current admission Acuity / Level of Answers: Yes Care: Did the patient have an inpatient admission? 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
--- NOTE | 2017-12-29 13:23 | ASMTCMCOM ---
CM Note CM Note Notes: Chart reviewed. No therapies identified at this time. Patient has been medically cleared for discharge to home. He has a family support system. CM available should needs arise. Date Signed: 12/29/2017 01:22 PM Electronically Signed By:Conchita Gustafson RN
[2017-12-29 13:30] VITALS: BP 123/85; PULSE 87; TEMP 97.7; O2SAT 94
--- NOTE | 2017-12-29 18:01 | PDDCSUM ---
Discharge Summary Discharge Summary: DISCHARGE SUMMARY FOLLOW-UP ITEMS: Schedule outpatient follow-up with Dr. Bear DATE OF ADMISSION: 12/25/2017 DATE OF DISCHARGE: 12/29/2017 DISCHARGE DIAGNOSES: 1. Acute gallstone pancreatitis 2. Permanent atrial fibrillation 3. Possible E coli urinary tract infection 4. Suspected chronic BPH 5. History of left atrial appendage thrombus 6. Small acute pleural effusions CONSULTATIONS: General surgery by Dr. Sudhir Bear PROCEDURES / IMAGING: MRCP demonstrating no choledocholithiasis or biliary obstruction, acute on chronic pancreatitis is with increasing peripancreatic edema and new small bilateral pleural effusions, gallbladder hydrops and cholelithiasis, unchanged pancreatic head cyst since 2010 CHIEF COMPLAINT: Acute abdominal pain SUBJECTIVE: Patient is feeling well at time of discharge, his pain is well managed on oral pain medications PHYSICAL EXAM ON DISCHARGE: Systolic blood pressure 120-130, heart rate 90-100, afebrile overnight, satting 94% on room air, mild midepigastric tenderness palpation without any rebound or guarding, bowel sounds are present, lungs are clear to auscultation bilaterally , heart rhythm is irregularly irregular but not fast LABS ON DISCHARGE: Liver panel completely normal, creatinine 0.8, TSH 1.8, B12 930, lipase down trended from [id number] HOSPITAL COURSE BY PROBLEM: 1. Acute gallstone pancreatitis. Patient presented with acute abdominal pain and radiographic evidence of pancreatitis with an elevated lipase level. MRCP demonstrated no common bile duct stone, but the cause of his pancreatitis was suspected biliary source. He was seen in consultation by Dr. Sudhir Bear who recommended outpatient follow-up for consideration of cholecystectomy. The patient was treated with bowel rest, IV fluids, pain medications. His diet was safely advanced on the day of discharge, he was without significant pain, and he is requesting discharge home. He is discharged home with as needed oral opiate pain medication as well as antiemetics. I recommended that he utilize a stool softener while he is on opiates to avoid constipation. 2. Permanent atrial fibrillation. The patient's heart rate increased during this hospitalization secondary to pain as well as deconditioning. His beta- tiffanie was up titrated to 50 mg twice daily and I recommended that the patient continues dosage until he is seen in follow-up by his primary court worker. At that time, after the patient's acute medical issues are stabilized, he may be able to titrate his metoprolol tartrate back 25 mg twice daily. 3. History of left atrial appendage thrombus. The patient is chronically on Xarelto, and this was held while the patient was NPO, he received Lovenox therapy, and his Xarelto is being reinitiate time discharge. 4. Possible urinary tract infection. Secondary to E coli, possibly contributing to his urinary symptoms with a positive urinalysis, treated with 5 days of Rocephin, to complete 2 subsequent days of cefpodoxime as an outpatient. 5. Suspected chronic BPH. Patient was also experiencing what or interpreted as BPH symptoms, Flomax was initiated, will be continued as an outpatient. 6. Small acute bilateral pleural effusions. Present on chest imaging, most likely secondary to volume received with pancreatitis treatment, received incentive spirometer as well as supplemental oxygen, and was weaned to room air time of discharge. He does not require additional diuretics, and he will naturese. DISCHARGE MEDICATIONS: Please see official discharge medication reconciliation sheet in chart , continue home medications with the addition of as needed oxycodone, as needed Zofran, scheduled Flomax at bedtime, metoprolol tartrate up titrated to 50 mg twice daily, cefpodoxime 200 mg twice daily x2 subsequent days. DISCHARGE INSTRUCTIONS: Please follow up with Dr. Sudhir Bear in the short term, Dr. Kvng Merino in approximately 1 week. TIME SPENT: Greater than 30 minutes were spent on direct patient care, as well as discharge planning and preparation.
== END 2017-12-29 14:55 | disposition home or self-care (01) | DRG 439 ==
LOC: CED 09:25 → CEDHOLD 12:09 → INTOOBSV 12:09 → F1N 14:00 → OBSVTOIN 12-26 18:02
PROVIDERS: ADMIT Internal Medicine; ATTEND Internal Medicine
DX: K85.10 Biliary acute pancreatitis without necrosis or infection (principal); N39.0 Urinary tract infection, site not specified; B96.20 Unspecified Escherichia coli [E. coli] as the cause of diseases classified elsewhere; K80.20 Calculus of gallbladder without cholecystitis without obstruction; N40.1 Benign prostatic hyperplasia with lower urinary tract symptoms; J90 Pleural effusion, not elsewhere classified; R07.9 Chest pain, unspecified; J43.9 Emphysema, unspecified; F17.210 Nicotine dependence, cigarettes, uncomplicated; I10 Essential (primary) hypertension; I48.2 Chronic atrial fibrillation; Z79.01 Long term (current) use of anticoagulants
CPT/HCPCS: 74177-PO; 80048-PO; 80076-PO; 81003-PO; 81015-PO; 82607-90; 83605-PO; 83690-PO; 85025-PO; 85610-PO; 85730-PO; 96374; G0378; J0696; J1170; J1650; J2405; Q9967

== ENCOUNTER 2018-02-09 06:21 | Day surgery (SDC) | payer OTHER ==
--- NOTE | 2018-02-09 00:39 | PDHPUP ---
History & Physical Update H&P update statement: This history and physical update is based on an assessment of the patient which was completed after admission or registration (within 24 hours), but prior to the surgery/procedure. H&P update: H&P reviewed & patient examined, no change in patient's condition since H&P completed
[2018-02-09] MEDS ORDERED: LR 1,000 ML IV ONE (06:58)
[2018-02-09] MEDS ORDERED: IOPAMIDOL (ISOVUE-M 300) 15 ML VIAL ONE (07:02)
[2018-02-09] MEDS ORDERED: BUPIVACAINE 0.5% 30 ML SDV ONE (07:02)
[2018-02-09] MEDS ORDERED: MIDAZOLAM 2 MG/2 ML VIAL IVP ONE (07:16)
[2018-02-09] MEDS ORDERED: MIDAZOLAM 2 MG/2 ML VIAL ONE (07:20)
--- NOTE | 2018-02-09 07:20 | PDANEPAE ---
ANE History of Present Illness Lap cholecystectomy ANE Past Medical History - Cardiovascular History Hx Hypertension: Yes Hx Arrhythmias: Yes Hx Chest Pain: No Hx Coronary Artery / Peripheral Vascular Disease: No Hx CHF / Valvular Disease: No Hx Palpitations: No Cardiovascular History Comment: ON PRADAXA -A FIB - Pulmonary History Hx COPD: Yes Hx Asthma/Reactive Airway Disease: No Hx Recent Upper Respiratory Infection: No Hx Oxygen in Use at Home: No Hx Sleep Apnea: No Sleep Apnea Screening Result - Last Documented: Positive Pulmonary History Comment: SMOKER- PT STATES "SLIGHT EMPHESEMA". C/O L SIDED RIB PAIN-S/P LOBECTOMY AFTER PT. " FELL WHILE ON PRADAXA AND PIERCED LUNG" - Neurologic History Hx Cerebrovascular Accident: No Hx Seizures: No Hx Dementia: No - Endocrine History Hx Diabetes: No Hypothyroid: No Hyperthyroid: No Obesity: no - Renal History Hx Renal Disorders: Yes Renal History Comment: NOCTURIA X 4-5 -WAS USING TAMSULOSIN-NONE NOW. - Liver History Hx Hepatic Disorders: No - Neurological & Psychiatric Hx Hx Neurological and Psychiatric Disorders: Yes Neurological / Psychiatric History Comment: HX PINCHED NERVE NECK. C/O NUMBNESS BILAT ARMS -WRISTS TO ELBOWS X MANY MONTHS - Cancer History Hx Cancer: Yes Cancer History Comment: SKIN MELANOMA - Congenital Disorder History Hx Congenital Disorders: No - GI History GERD: mild Hx Gastrointestinal Disorders: Yes Gastrointestinal History Comment: L SIDED ABD PAIN-GALL STONES;. OTC RX FOR OCC HEARTBURN - Other Health History Other Health History: N/A - Chronic Pain History Chronic Pain: No (L SIDE OF CHEST, ABD) - Surgical History Prior Surgeries: BACK SURGERY. PARTIAL LOBECTOMY ~2014 ANE Review of Systems Review of Systems: - Exercise capacity METS (RN): 3 METS ANE Patient History - Allergies Allergies/Adverse Reactions: No Known Allergies Allergy (Verified 12/25/17 09:37) - Home Medications Home Medications: Dabigatran Etexilate Mesyl [Pradaxa 150 MG (*)] 150 mg PO BID 12/25/17 [Last Taken 02/07/18] - NPO status NPO Since - Liquids (Date): 02/09/18 NPO Since - Liquids (Time): 05:00 NPO Since - Solids (Date): 02/08/18 NPO Since - Solids (Time): 17:00 - Anes Hx Anes Hx: no prior problems - Smoking Hx Smoking Status: Current every day smoker - Alcohol Use Alcohol Use: Occasionally - Family Anes Hx Family Anes Hx: none ANE Labs/Vital Signs - Vital Signs Blood Pressure: 128/86 Heart Rate: 79 Respiratory Rate: 16 O2 Sat (%): 95 Height: 180.34 cm Weight: 76.204 kg ANE Physical Exam - Airway Neck exam: decreased ROM Mallampati Score: Class 2 Mouth exam: poor dentition - Pulmonary Pulmonary: no respiratory distress, reduced air movement - Cardiovascular Cardiovascular: no murmur, rub, or gallop, irregularly irregular - ASA Status ASA Status: III ANE Anesthesia Plan Anesthesia Plan: general endotracheal anesthesia
--- NOTE | 2018-02-09 07:31 | POSTOPPROG ---
Post Op Note Date of Operation: 02/09/18 Surgeon: Sudhir Bear Drywall Carrier: Batsheva Falk PA-C Anesthesia: GET(General Endotracheal) Pre-op Diagnosis: Cholelithiasis Post-op Diagnosis: Cholelithiasis Procedure: lap cholecystectomy with IO cholangiogram Findings: small gallbladder with stones, small cystic duct, neg IOC Inf/Abcess present in the surg proc area at time of surgery?: No EBL: Minimal Complications: no immediate Specimen(s): gallbladder
[2018-02-09] MEDS ORDERED: PROPOFOL/EMULSION 500 MG/50 ML BOTTLE IV ONE (07:33)
[2018-02-09] MEDS ORDERED: fentaNYL 250 MCG/5 ML INJ ONE (07:33)
[2018-02-09] MEDS ORDERED: DEXAMETHASONE 4 MG/ML VIAL ONE (07:45)
[2018-02-09] MEDS ORDERED: SUGAMMADEX SODIUM 200 MG/2 ML VIAL IVP ONE (08:16)
[2018-02-09] MEDS ORDERED: METOPROLOL TARTRATE 5 MG/5 ML INJ ONE (08:16)
[2018-02-09] MEDS ORDERED: ROCURONIUM 100 MG/10 ML VIAL ONE (08:16)
[2018-02-09] MEDS ORDERED: ONDANSETRON 4 MG/2 ML VIAL ONE (08:16)
[2018-02-09] MEDS ORDERED: fentaNYL 100 MCG/2 ML INJ IVP PRN (08:24)
[2018-02-09] MEDS ORDERED: ONDANSETRON 4 MG/2 ML VIAL IVP PRN (08:24)
[2018-02-09] MEDS ORDERED: ACETAMINOPHEN 500 MG TAB PO PRN (08:24)
[2018-02-09] MEDS ORDERED: HYDROmorphONE/DILAUDID 2 MG/ML INJ IVP PRN (08:24)
[2018-02-09] MEDS ORDERED: NALOXONE HCL 0.4 MG/ML INJ IVP PRN (08:24)
[2018-02-09] MEDS ORDERED: METOCLOPRAMIDE 10 MG/2 ML VIAL IVP PRN (08:24)
[2018-02-09] MEDS ORDERED: oxyCODONE IR 5 MG TAB PO PRN (08:24)
--- NOTE | 2018-02-09 08:59 | GOP ---
[f rep st] OPERATIVE REPORT DATE OF OPERATION: 02/09/2018 SURGEON: Sudhir Bear MD MANAGER DRILLING: Batsheva Falk PA-C ANESTHESIA: General. ANESTHESIOLOGIST: Dr. Bibiana Irene. PREOPERATIVE DIAGNOSIS: 1. Symptomatic cholelithiasis. 2. History of pancreatitis. POSTOPERATIVE DIAGNOSIS: 1. Symptomatic cholelithiasis. 2. History of pancreatitis. PROCEDURE PERFORMED: Laparoscopic cholecystectomy, intraoperative angiography. FINDINGS: Normal IOC. INDICATIONS: 72-year-old male with a history of pancreatitis and recurrent biliary colic. He is undergoing laparoscopic cholecystectomy at this time. Risks and benefits were explained of bleeding, infection, open conversion, bowel duct injury, retained stone, indications for postoperative ERCP. All questions were answered. He desires to proceed. A nurses assistant is standard and necessary and customary for the safe performance of this procedure. DESCRIPTION OF PROCEDURE: After general anesthesia was induced, the abdomen was pre-injected with 0.5% Marcaine with epinephrine. A vertical infraumbilical cutdown was created. A 10 mm trocar was placed under direct visualization. Three additional 5 mm upper abdominal ports were inserted. The gallbladder was retracted cephalad. This was an edematous friable structure. Both duct and artery were circumferentially encompassed confirming the critical view of safety. The duct was small in caliber. The duct was open with evidence of clear rahman bile arising from the cut edge. Intraoperative cholangiography was performed showing rapid duodenal emptying, as well as normal intra and extrahepatic ducts without filling defects. The clamp was removed. The duct was multiply clipped and divided with the ultrasonic dissector, as was the artery. The gallbladder was peeled from liver bed fossa and brought through umbilical port site intact using EndoCatch pouch. There was a very large solitary gallstone with small, particulate sludgy bile. Satisfactory hemostasis was assured. Trocars were removed under direct visualization. The infraumbilical midline fascia was closed with running Vicryl suture. The wounds were closed with Monocryl suture, followed by Dermabond. The patient was taken to recovery uneventfully. /[id number]/MODL MTDD
--- NOTE | 2018-02-09 10:32 | POSTANESTH ---
Post Anesthetic Evaluation Cardiovascular Status: Similar to Pre-Op Cond Respiratory Status: Normal, Stable Level of Consciousness/Mental Status: Can Participate in Eval Pain Control: Adequate, Prn Tx Ordered Nausea/Vomiting Control: Adequate, Prn Tx Ordered Complications Possibly Related to Anesthesia: None Noted
[2018-02-09 12:24] VITALS: BP 138/88
== END 2018-02-09 11:55 | disposition home or self-care (01) ==
LOC: FSGY 06:21
PROVIDERS: ATTEND Surgery
DX: K80.20 Calculus of gallbladder without cholecystitis without obstruction (principal); K85.80 Other acute pancreatitis without necrosis or infection; B02.9 Zoster without complications; N40.1 Benign prostatic hyperplasia with lower urinary tract symptoms; D13.6 Benign neoplasm of pancreas; N33 Bladder disorders in diseases classified elsewhere; N39.0 Urinary tract infection, site not specified; I48.2 Chronic atrial fibrillation
CPT/HCPCS: J0171; J1100; J2250; J2405; J2704; J3010; Q9967